=== PATIENT | male | born 1960 | race Two or more races ===

== ENCOUNTER 2022-10-15 18:22 | Emergency (ER) | payer BC ==
[~2022-10-15] VITALS: Ht 167.6 cm; Wt 100.0 kg
[2022-10-15 18:54] VITALS: BP 169/120
== END 2022-10-15 19:29 | disposition left against medical advice (07) ==
LOC: ER 18:27
DX: I10 Essential (primary) hypertension (principal); R06.02 Shortness of breath; Z53.21 Procedure and treatment not carried out due to patient leaving prior to being seen by health care provider

== ENCOUNTER 2022-10-25 10:57 | Emergency (ER) | payer BC ==
[~2022-10-25] VITALS: Ht 170.2 cm; Wt 104.5 kg
[2022-10-25] MEDS ORDERED: LABETALOL HCL 5 MG/ML 4ML SYRINGE IV ONE (11:30)
[2022-10-25 11:56] LABS: Albumin 4.5 g/dL (3.4-5.0); BUN/Creatinine Ratio 13.9; Calcium 9.7 mg/dL (8.5-10.1); Potassium 4.3 mmol/L (3.5-5.1)
[2022-10-25 11:58] LABS: Basophils # (auto) 0.1 10 ^3/uL (0-0.2); Basophils % (auto) 0.6 % (0.0-2.0); Eosinophils # (auto) 0.4 10 ^3/uL (0-0.8); Eosinophils % (auto) 4.1 % (0.0-7.0); Hemoglobin 16.8 g/dL (13.5-17.5); Lymphocytes # (auto) 2.7 10 ^3/uL (0.4-5.4); Lymphocytes % (auto) 25.3 % (10.0-50.0); Mean Corpuscular Hemoglobin 29.4 pg (28.0-32.0); Mean Corpuscular Hgb Conc. 33.6 g/dL (32.0-36.0); Mean Corpuscular Volume 87.5 fL (80.0-100.0); Monocytes # (auto) 0.7 10 ^3/uL (0-1.3); Monocytes % (auto) 6.5 % (0.0-12.0); Neutrophils # (auto) 6.7 10 ^3/uL (1.6-8.6); Neutrophils % (auto) 63.5 % (37.0-80.0); Nucleated Red Blood Cells % 0.1 %; Red Blood Cells 5.71 10^6/uL (4.5-5.90); Red Cell Distribution Width 13.7 % (11.8-14.3); White Blood Cell 10.6 10^3/uL (4.4-10.8)
[2022-10-25 11:59] LABS: Bilirubin, Total 0.7 mg/dL (0.2-1.0); Total Protein 7.7 g/dL (6.4-8.2)
[2022-10-25 15:22] VITALS: BP 153/85
== END 2022-10-25 15:35 | disposition home or self-care (01) ==
LOC: ER 10:57
DX: I16.0 Hypertensive urgency (principal); I10 Essential (primary) hypertension; F17.210 Nicotine dependence, cigarettes, uncomplicated
CPT/HCPCS: 36415; 71046; 80053; 84484; 85025; 93005; 96374; 99285; J3490

== ENCOUNTER 2024-03-28 13:48 | Emergency (ER) | payer BC, OTHER ==
[~2024-03-28] VITALS: Ht 170.2 cm; Wt 90.7 kg
[2024-03-28 14:15] LABS: Urine Bacteria None Seen /hpf (None Seen)
[2024-03-28 14:25] LABS: Basophils # (auto) 0.1 10 ^3/uL (0-0.2); Basophils % (auto) 0.7 % (0.0-2.0); Eosinophils # (auto) 0.3 10 ^3/uL (0-0.8); Eosinophils % (auto) 3.4 % (0.0-7.0); Hematocrit 40.3 % (41.0-53.0); Hemoglobin 14.2 g/dL (13.5-17.5); Lymphocytes # (auto) 1.8 10 ^3/uL (0.4-5.4); Lymphocytes % (auto) 19.8 % (10.0-50.0); Mean Corpuscular Hemoglobin 30.2 pg (28.0-32.0); Mean Corpuscular Hgb Conc. 35.3 g/dL (32.0-36.0); Mean Corpuscular Volume 85.7 fL (80.0-100.0); Monocytes # (auto) 0.7 10 ^3/uL (0-1.3); Monocytes % (auto) 7.4 % (0.0-12.0); Neutrophils # (auto) 6.2 10 ^3/uL (1.6-8.6); Neutrophils % (auto) 68.7 % (37.0-80.0); Nucleated Red Blood Cells % 0.1 %; Red Cell Distribution Width 12.8 % (11.8-14.3)
[2024-03-28 14:26] LABS: Urine Blood Negative /uL (Negative); Urine Clarity Clear (Clear); Urine Color Light-Yellow (Yellow); Urine Protein, UAD Negative (Negative); Urine Specific Gravity 1.019 (1.001-1.035); Urine Urobilinogen Normal (Negative); Urine WBC 1 /hpf (0 - 3); Urine pH 5.5 (5.0-9.0)
[2024-03-28 14:43] LABS: INR 0.98 (0.9-1.15); Partial Thromboplastin Time 26.1 SEC (24.5-34.5); Prothrombin Time 10.4 sec (9.3-11.8)
[2024-03-28 14:54] LABS: Alanine Aminotransferase 23 U/L (7-40); Albumin 4.9 g/dL (3.2-4.8); Alkaline Phosphatase 58 U/L (46-116); Anion Gap 8 (5-15); Aspartate Aminotransferase 17 U/L (13-40); BUN/Creatinine Ratio 9.6 (10.0-20.0); Bilirubin, Total 0.7 mg/dL (0.2-1.0); Blood Urea Nitrogen 13 mg/dL (9-23); Calcium 10.6 mg/dL (8.5-10.1); Carbon Dioxide 23 mmol/L (20-30); Chloride 108 mmol/L (98-107); Glucose 82 mg/dL (74-106); Potassium 4.1 mmol/L (3.5-5.1); Sodium 139 mmol/L (136-145); Total Protein 7.5 g/dL (5.7-8.2)
[2024-03-28] MEDS: IOHEXOL 300 MG/ML 100ML BOTTLE IJ ONE (16:07)
[2024-03-28] MEDS: PANTOPRAZOLE 40 MG/10 ML VIAL INJ IV ONE (16:09)
[2024-03-28] MEDS ORDERED: PANT40TA2 PO (17:19)
[2024-03-28 17:27] VITALS: BP 134/80; PULSE 94; RESP 19; TEMP 98.1; O2SAT 96
== END 2024-03-28 17:28 | disposition home or self-care (01) ==
LOC: ER 13:48
DX: R07.9 Chest pain, unspecified (principal); K21.9 Gastro-esophageal reflux disease without esophagitis; F41.9 Anxiety disorder, unspecified; I10 Essential (primary) hypertension; F17.210 Nicotine dependence, cigarettes, uncomplicated
CPT/HCPCS: 36415; 71045; 71260; 74177; 80053; 81001; 83735; 83880; 84484; 85025; 85610; 85730; 93005; 96374; 99285; C9113; Q9967